=== PATIENT | female | born 1965 | race African-American/Black ===

== ENCOUNTER 2019-11-02 11:01 | Inpatient (IN) ==
[2019-11-02] MEDS ORDERED: TAPAZOLE PO ONE (13:43)
[2019-11-02] MEDS ORDERED: APRESOLINE IV PRN (13:45)
--- NOTE | 2019-11-02 14:01 | Diag Imaging Result Doc PS360 ---
EXAM: CHEST-2 VIEWS HISTORY: SOB TECHNIQUE: Two views COMPARISON: None. FINDINGS: The lungs are well expanded. The heart is not enlarged. The vessels are not distended. There are no infiltrates. No pleural effusions. IMPRESSION: No acute abnormality. Electronically signed by Levi Roberts 11/02/2019 1:59 PM
[2019-11-02 14:49] LABS: BASO# 0.02 X1000 (0.0-0.2); BASO% 0.1 % (0.0-0.8); EOS# 0.08 X1000 (0.0-0.7); EOS% 0.6 % (0.0-10.0); HEMATOCRIT 36.1 % (37.0-47.0); HEMOGLOBIN 11.6 g/dL (12.0-16.0); IMM GRAN# 0.05 X1000 (0.0-0.04); IMM GRAN% 0.3 % (0.0-0.5); LYMPH# 4.25 X1000 (1.2-3.4); LYMPH% 29.6 % (20.5-51.1); MCH 26.4 PG (27-31); MCHC 32.1 g/dL (33-37); MONO# 0.91 X1000 (0.11-0.59); MONO% 6.3 % (1.7-9.3); MPV 11.1 FL (7.4-10.4); NEUT# 9.05 X1000 (1.4-6.5); NEUT% 63.1 % (42.2-75.2); PLT 262 X1000 (130-400); WBC 14.36 X1000 (4.8-10.8)
--- NOTE | 2019-11-02 14:52 | EKG Report ---
Test Performed on : 11/02/2019 2:11:35 PM Test Reason : chest pain Blood Pressure : / mmHG Vent. Rate : 099 BPM Atrial Rate : 099 BPM P-R Int : 172 ms QRS Dur : 092 ms QT Int : 394 ms P-R-T Axes : 042 032 010 degrees QTc Int : 505 ms Sinus rhythm. with frequent premature ventricular complexes. Nonspecific ST abnormality Prolonged QT Abnormal ECG When compared with ECG of 05-JAN-2019 13:30, premature ventricular complexes. are now present T wave inversion now evident in Inferior leads Nonspecific T wave abnormality has replaced inverted T waves in Lateral leads Confirmed by Cyndie Angel MD ([id number]) on 11/04/2019 12:59:33 PM
[2019-11-02 15:48] LABS: AGAP 13; ALB/GLOB RATIO 1.1; ALBUMIN 3.6 g/dL (3.5-5.0); ALKALINE PHOSPHATASE 120 U/L (32-104); BUN 11 mg/dL (8-22); CALCIUM 10.4 mg/dL (8.8-10.2); CHLORIDE 102 mmol/L (98-107); COSMO 279; CREATININE 0.7 mg/dL (0.5-0.9); ESTIMATED GFR > 60; GLUCOSE 102 mg/dL (70-104); GOT 23 U/L (10-30); GPT 20 U/L (10-36); POTASSIUM 3.6 mmol/L (3.5-5.1); SODIUM 140 mmol/L (136-145); TCO2 25 mmol/L (25-35); TOTAL BILIRUBIN 0.53 mg/dL (0.20-1.00)
[2019-11-02] MEDS: LOVENOX SUBQ SCH (19:02)
[2019-11-02] MEDS ORDERED: SODIUM CHLORIDE 0.9% INJ SCH (20:00)
[2019-11-02] MEDS ORDERED: NEXIUM IV SCH (20:00)
[2019-11-02] MEDS: PROTONIX IV SCH (20:11)
[2019-11-02] MEDS: SODIUM CHLORIDE 0.9% INJ SCH (20:11)
[2019-11-02] MEDS: TENORMIN PO SCH (20:11)
[2019-11-03 05:26] LABS: URINE SOURCE CLEAN CATCH
[2019-11-03 05:33] LABS: BILIRUBIN URINE NEGATIVE (NEGATIVE); BLOOD URINE NEGATIVE (NEGATIVE); COLOR YELLOW; GLUCOSE URINE NEGATIVE (NEGATIVE); KETONE URINE NEGATIVE (NEGATIVE); LEUKOCYTES URINE LARGE (NEGATIVE); NITRITE URINE NEGATIVE (NEGATIVE); PH URINE 5.5; PROTEIN URINE TRACE mg/dL (NEGATIVE); SP GRAVITY URINE 1.023; TURBIDITY URINE HAZY (CLEAR); UROBILINOGEN URINE 3 mg/dL (NORMAL)
[2019-11-03 05:39] LABS: UR EPITHELIAL CELLS <10 /HPF (<10); URINE BACTERIA 2+ /HPF; URINE RBC <10 /HPF (<10); URINE WBC TNTC /HPF (<10)
[2019-11-03 05:42] LABS: URINE CRYSTALS NONE SEEN
--- NOTE | 2019-11-03 06:35 | HISTORY AND PHYSICAL ---
CHIEF COMPLAINT: Elevated blood pressure and headache. HISTORY OF PRESENT ILLNESS: She is a 54-year-old female with longstanding multinodular goiter and thyroid nodule on the left side of the neck since 2014. Her history was baffling. She was on hypothyroid by Dr. Choudhary which was stopped. The patient was seen last in my office in July. At that time, free T4 was normal. She came in my office last week with substantially elevated blood pressure while she was on three medications. Secondary endocrine workup was negative for primary aldosteronism, pheochromocytoma, and Mansfield syndrome. She significantly had a goiter hyperactive and also proptosis, periorbital swelling, and pretibial myxedema. I did test last week in my office, free T4 was high 3.4. TSH is low, and thyroid stimulating immunoglobulins were positive. The patient has exhibiting Graves disease. I was not able to contact over the weekend. I came today with headaches and impending malignant hypertension and encephalopathy. Basically, admitted to the hospital for control of blood pressure, and evaluation of Graves disease workup. The patient was started on atenolol and methimazole. The patient has been scheduled for a 24 hour iodine uptake study tomorrow. EKG showed sinus tachycardia. Chest x-ray was stable. As a result, the patient has been hospitalized to control the blood pressure. In my office, blood pressure was 220/130. PAST MEDICAL HISTORY: Metabolic syndrome, accelerated hypertension, Graves disease, multinodular goiter with swelling on the left side of the neck, and nicotine abuse. History of pancreatitis due to alcohol. PAST SURGICAL HISTORY: Thyroid biopsy. MEDICATIONS: 1. Chlorthalidone 50 daily. 2. Hydralazine 100 b.i.d. 3. Potassium 20 mEq daily. 4. Hyzaar 100/25 daily. ALLERGIES: Not known. SOCIAL HISTORY: Single with one child. 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 Smoking 1 pack a day. Socially drinks alcohol. No drug abuse. FAMILY HISTORY: Father of lupus at 82. Mom is an 86-year-old with hypertension and dialysis machine. HEALTH MAINTENANCE: Mammography in January of 2019. DEXA scan 05/2015. Pap smear 2009. REVIEW OF SYSTEMS: HEENT: Headaches. There are some vision problems. No earache. No sore throat. Neck swelling. Goiter and left side of the neck swelling. Cardiopulmonary: Tachycardia. Weight loss. No chest pain. There is slight swelling of feet. No PND. No orthopnea. GI: No nausea, vomiting, or abdominal pain. Bleeding per rectum. Hemorrhoids were noted. Waiting for endoscopist. Neurologic: No focal symptoms or weakness. OBJECTIVE: Vital Signs: Temperature 98.5 degrees, pulse 107, blood pressure 200/101, 5 feet 8, and 255 pounds. HEENT: Proptosis noted. TMs are normal. Neck: Supple. Multinodular goiter noted. There was swelling noted on the left side of the neck. Chest: Bilateral air entry. Heart: Sounds are regular. Belly is soft and nontender. Good bowel sounds. 1+ pedal edema. No obvious neurological deficits. INVESTIGATIONS: White cell count 14.3, hematocrit 36, and platelets 262,000. SMA 7 is normal. Calcium 10.4. Free T4 was 3.3. TSH is low. Thyroid stimulating immunoglobulin positive. ProBNP 2431. Alkaline phosphatase was high. EKG sinus tachycardia with LVH. Chest x- ray no acute abnormality. ASSESSMENT AND PLAN: 1. A 54-year-old female admitted to the hospital with thyrotoxicosis consistent with Graves disease. Plan is schedule for thyroid scan with uptake I-123. In In the meantime, beta blockers and methimazole. 2. Hypertension crisis. Continue on atenolol, amlodipine, Hyzaar, and hydralazine. 3. Deep vein thrombosis and gastrointestinal prophylaxis as per order sheet. Goiter and left side of the neck swelling. Consider CT of the neck after the thyroid radioactive iodine uptake study. After cools off, needs a permanent treatment. We will discuss the options, and will follow up. cc: Faheem Martinez MD MTDD
[2019-11-03] MEDS: HYZAAR 100/12.5 MG TAB PO SCH (08:43)
[2019-11-03] MEDS: LASIX IV SCH (08:43)
[2019-11-03] MEDS: TENORMIN PO SCH ×2 (08:43→21:44)
[2019-11-03] MEDS: KLOR-CON PO SCH (08:43)
[2019-11-03] MEDS: NORVASC PO SCH (08:43)
[2019-11-03] MEDS: LOVENOX SUBQ SCH (14:16)
--- NOTE | 2019-11-03 21:29 | PROGRESS NOTE ---
DATE: 11/03/2019 SUBJECTIVE: The patient's headache is better. Blood pressure is slowly coming down. The patient had a thyroid scan. Uptake was done first stage. OBJECTIVE: Vital signs: Temperature is 98 degrees. Vitals are stable. HEENT Exam: Mild proptosis and significant goiter noted. Chest: Clear. Cardiovascular: Heart sounds are regular. Abdomen: Belly is soft, nontender. No peripheral edema. INVESTIGATIONS: In my office: Positive thyroid stimulating immunoglobulin, very high positive antimicrosomal antibody. ASSESSMENT AND PLAN: 1. Uncontrolled hypertension due to Graves' disease waiting for radioactive iodine uptake studies. 2. Goiter. Plan of care is control the blood pressure with present treatment for thyrotoxicosis, beta paulino and Tapazole and based on that further recommendations will be followed. We will also schedule for a CT neck after the thyroid scan uptake. Hypokalemia is better and DVT prophylaxis with Lovenox and consider definitive treatment down the line, and we will follow. LEVEL OF DOCUMENTATION: 25 minutes. cc: Faheem Martinez MD
[2019-11-03] MEDS: SODIUM CHLORIDE 0.9% INJ SCH (21:44)
[2019-11-03] MEDS: PROTONIX IV SCH (21:44)
--- NOTE | 2019-11-04 08:26 | Diag Imaging Result Doc PS360 ---
EXAM: THYROID SCAN/UPTAKE 11/03/2019 HISTORY: Thyrotoxicosis TECHNIQUE: 291 uCi of I-123 by mouth COMMENT: Six and 24-hour uptake are 41.1 and 49.8% respectively which is well above the normal range. The thyroid gland is markedly inhomogeneous in appearance with apparent isolated activity above the left lobe. This presumably corresponds to the hypoechoic nodule demonstrated on the ultrasound of 06/01/2015. By history there has been a left hemithyroidectomy. IMPRESSION: Hyperthyroidism. Electronically signed by Fei Alvarenga 11/04/2019 8:24 AM
[2019-11-04] MEDS: KLOR-CON PO SCH (09:05)
[2019-11-04] MEDS: HYZAAR 100/12.5 MG TAB PO SCH (09:05)
[2019-11-04] MEDS: TENORMIN PO SCH ×2 (09:06→20:49)
[2019-11-04] MEDS: NORVASC PO SCH (09:06)
[2019-11-04] MEDS: LASIX IV SCH (09:06)
[2019-11-04] MEDS: LOVENOX SUBQ SCH (13:47)
[2019-11-04] MEDS: PROTONIX IV SCH (20:49)
[2019-11-04] MEDS: SODIUM CHLORIDE 0.9% INJ SCH (20:49)
[2019-11-04] MEDS: TAPAZOLE PO SCH (20:49)
--- NOTE | 2019-11-04 21:35 | PROGRESS NOTE ---
DATE: 11/04/2019 SUBJECTIVE: The patient is doing better and she was seen twice. OBJECTIVE: Temperature is 98 degrees. Vitals are stable.HEENT Exam: Decreased proptosis. Neck: Supple. Chest: Bilateral air entry. Heart: Sounds are regular. Abdomen: Belly is soft nontender. INVESTIGATIONS: Are thyroid radioactive iodine uptake study showed consistent with hyperthyroidism. ASSESSMENT AND PLAN: 1. Uncontrolled hypertension due to thyrotoxicosis due to Graves disease. 2. Positive thyroid stimulating immunoglobulin corroborated by high value of radioactive iodine uptake. 3. Thyroid biopsy on the left side was not clear whether did the left thyroidectomy. there is also unusual swelling on the left upper neck. I will do a CT scan of the neck. Plan is right now continue present treatment for blood pressure, amlodipine, Tenormin, and Hyzaar. For hypothyroidism, beta blockers and methimazole and then will discuss with the patient about the permanent treatment, either thyroidectomy or radioactive ablation I 131 treatment and will follow up and I will get a CT scan of the neck tomorrow. LEVEL OF DOCUMENTATION: 35 minutes. cc: Faheem Martinez MD
--- NOTE | 2019-11-05 08:49 | Diag Imaging Result Doc PS360 ---
CT NECK W/WO CONTRAST - 11/04/2019 INDICATION: goiter COMPARISON: Radioiodine scan 11/04/2019, thyroid ultrasound 06/01/2015 FINDINGS: There is redemonstration of the enlarged residual right lobe of the thyroid. The left lobe has been previously removed. The right lobe measures 4.2 x 4.7 x 5.8 cm in AP, lateral, and craniocaudal measurements. This is slightly larger than the ultrasound from 2015. There are normal sized cervical lymph nodes. No adenopathy. The great vessels of the neck are patent. The lung apices are clear. Bones are intact. Moderate disc degeneration at the inferior cervical spine. IMPRESSION: Little change from prior. Enlarged, goitrous right lobe of the thyroid. This exam was performed using automated exposure control, adjustment of mA or kV according to patient size, and/or use of iterative reconstruction technique Electronically signed by Carlo Holguin 11/05/2019 8:46 AM
[2019-11-05] MEDS: HYZAAR 100/12.5 MG TAB PO SCH (09:47)
[2019-11-05] MEDS: KLOR-CON PO SCH (09:47)
[2019-11-05] MEDS: TAPAZOLE PO SCH ×2 (09:48→20:14)
[2019-11-05] MEDS: LEVAQUIN PO SCH (09:48)
[2019-11-05] MEDS: NORVASC PO SCH (09:48)
[2019-11-05] MEDS: TENORMIN PO SCH ×2 (09:48→20:14)
[2019-11-05] MEDS: LASIX IV SCH (09:51)
[2019-11-05] MEDS: LOVENOX SUBQ SCH (12:54)
[2019-11-05] MEDS: PROTONIX IV SCH (20:14)
[2019-11-05] MEDS: SODIUM CHLORIDE 0.9% INJ SCH (20:14)
--- NOTE | 2019-11-05 21:24 | PROGRESS NOTE ---
DATE: 11/05/2019 SUBJECTIVE: The patient was seen twice. I did review the CT neck. It showed a goiter. The swelling on the left side of the neck is decreasing in size. PHYSICAL EXAMINATION: Temperature is 97 degrees. Vitals are stable. Goiter is decreasing.Chest: Clear. Heart: Sounds are regular. Abdomen: Belly is soft, nontender. ASSESSMENT AND PLAN: 1. Graves' disease. Positive thyroid stimulating immunoglobulin plus hyperactive thyroid gland on radioactive iodine 123 uptake. Continue on beta blockers and methimazole. 2. Definitive treatment. We will discuss about thyroidectomy versus radioactive iodine ablation treatment. 3. Hypertension is well controlled. 4. Urinary tract infection on Levaquin. 5. When stable, we will discharge in the morning. LEVEL OF DOCUMENTATION: 25 minutes. cc: Faheem Martinez MD
[2019-11-06 08:09] VITALS: BP 129/93
[2019-11-06] MEDS: TAPAZOLE PO SCH (08:50)
[2019-11-06] MEDS: LEVAQUIN PO SCH (08:50)
[2019-11-06] MEDS: NORVASC PO SCH (08:51)
[2019-11-06] MEDS: KLOR-CON PO SCH (08:51)
[2019-11-06] MEDS: HYZAAR 100/12.5 MG TAB PO SCH (08:51)
[2019-11-06] MEDS: TENORMIN PO SCH (08:51)
--- NOTE | 2019-11-08 19:11 | DISCHARGE SUMMARY ---
ADMISSION DATE: 11/02/2019 DISCHARGE DATE: 11/06/2019 DISCHARGE DIAGNOSIS: Uncontrolled hypertension due to hyperthyroidism, due to Graves disease. SECONDARY DIAGNOSES: 1. Thyrotoxicosis due to Graves disease. Positive thyroid stimulating immunoglobulins very high and also radioactive uptake study was also high. 2. Urinary tract infection due to Escherichia coli. PROCEDURES: 1. Thyroid uptake scan I 123 consistent with hyperthyroidism. 2. 6 and 24 uptake 41 to [address]%. 3. CT neck enlarged goiter of the right lobe of thyroid. The left lobe has been removed. 4. Chest x-ray; no acute abnormality with elevation of right hemidiaphragm. BRIEF HISTORY: Please see the history and physical that was done on 11/02/2019. In brief, she is a 54-year-old -[place] female with a longstanding multinodular goiter with some type of nodule on the left side of the neck with previous thyroidectomy. Basically, she came into my office with proptosis of the eyelids, diffuse goiter mostly on the right side, tachycardia and weight loss. Thyroid function test showed thyrotoxicosis with decreased TSH and free T4 levels were high. Subsequently, thyroid stimulating immunoglobulin positive as well as thyroid microsomal antibody. Due to substantial elevation of high blood pressure, patient was admitted to the hospital to control the blood pressure and thyrotoxicosis. HOSPITAL COURSE: 1. Thyrotoxicosis. The patient was started on beta blockers and methimazole. In the meantime are controlling the blood pressure. 2. Further workup revealed it is a due to Graves disease. 3. She also has UTI for which she was given Levaquin. 4. Deep vein thrombosis and gastrointestinal prophylaxis were given and at the time of discharge, the goiter is small. She still has some mild proptosis noted. I recommended continue to cool off the hyperthyroid state with beta blockers and methimazole for at least 2-4 weeks. We will decide, based on the goiter size, whether she needs a thyroidectomy versus radioactive I 130 ablation therapy. LABS: CBC: White cell count 14, hematocrit 36, platelets 262,000, SMA 7 was normal. Calcium 10.4. ProBNP 2400. Thyroid peroxidase antibodies more than 600, T4 was high. Thyroid stimulating antibody is also positive. DISCHARGE INSTRUCTIONS: 1. Chlorthalidone 25 mg daily. 2. Amlodipine 10 daily. 3. Potassium 20 mEq daily. 4. Hyzaar 100/12.5 daily. 5. Methimazole 10 p.o. b.i.d. 6. Atenolol 50 p.o. b.i.d. 7. Levaquin 500 daily for 7 days. 8. Follow up in my office next week. cc: Faheem Martinez MD
== END 2019-11-06 09:30 | disposition home or self-care (01) | DRG 644 ==
LOC: DIRADM 11:01 → 4N 13:18
PROVIDERS: ADMIT Internal Medicine; ATTEND Internal Medicine